=== PATIENT | female | born 1985 | race Two or more races ===

== ENCOUNTER 2016-08-08 14:44 | Emergency (ER) | payer MEDICAID ==
[~2016-08-08] VITALS: Ht 149.9 cm; Wt 77.1 kg
[~2016-08-08 14:44] MED LIST: NKM
[2016-08-08 14:51] VITALS: BP 116/79
[2016-08-08] MEDS ORDERED: Ketorolac 30mg Inj IV ONE (15:45)
[2016-08-08] MEDS ORDERED: Dexamethasone 4mg/ml vial IVP ONE (15:45)
--- NOTE | 2016-08-08 16:01 | Emergency Room Report ---
History of Present Illness General Chief Complaint: Sore Throat Source: Patient Present Illness HPI 30-year-old female presents emergency department complaining of left-sided 7/10 localized throat pain and swelling since last night. Patient reports she is unable to open her mouth states her pain is 10 out of 10 in severity. Patient also states that she had a history of abscess several months ago in the location that required surgical drainage and hospitalization. Patient denies taking any medications prior to arrival patient denies fevers the patient states that last time she didn't develop fevers to several days after. Pt reports difficulty swallowing, and change to voice. Patient denies cough, nausea, vomiting, . Denies CP, Palpitations, LOC, AMS, dizziness, Changes in Vision, Sensation, paresthesias, or a sudden severe headache. Allergies: Coded Allergies: No Known Allergies (Unverified , 08/08/16) Patient History Past Medical History: see triage record Past Surgical History: none Pertinent Family History: none Last Menstrual Period: 3 weeks ago Now: No Immunizations: UTD Reviewed Nursing Documentation: PMH: Agreed, PSxH: Agreed Nursing Documentation-PMH Past Medical History: No Stated History Review of Systems All Other Systems: negative except mentioned in HPI Physical Exam Vital Signs Date Time Temp Pulse Resp B/P Pulse Ox O2 Delivery O2 Flow Rate FiO2 08/08/16 14:39 99.1 91 20 116/79 99 Room Air Sp02 EP Interpretation: reviewed, normal General Appearance: no apparent distress, alert, GCS 15, non-toxic Head: normocephalic, atraumatic Eyes: bilateral eye PERRL, bilateral eye normal inspection ENT: hearing grossly normal, normal pharynx, no angioedema, normal voice, other - PT. has moderate trismus barely 1 finger breath, visiable left sided neck and subparotid swelling in addition to swelling in the pre auricular area. Neck: full range of motion, no meningismus, no bony tend, supple/symm/no masses Respiratory: chest non-tender, lungs clear, normal breath sounds, speaking full sentences Cardiovascular #1: regular rate, rhythm, no edema Musculoskeletal: back normal, gait/station normal, normal range of motion, non- tender, no calf tenderness Neurologic: alert, oriented x3, responsive, motor strength/tone normal, sensory intact, speech normal Psychiatric: judgement/insight normal, memory normal, mood/affect normal, no suicidal/homicidal ideation Skin: normal color, no rash, warm/dry, well hydrated Lymphatic: other - sub parotid LAD bilaterally Medical Decision Making PA Attestation Dr. Palacios is my supervising Physician whom patient management has been discussed with. Diagnostic Impression: Primary Impression: Sialoadenitis of submandibular gland Additional Impression: Sialolithiasis, ductal ER Course Pt. presents to the ED c/o : Unilateral throat swelling and pain since last night, with hx of abscess. Ddx considered but are not limited to: pharyngitis, strep, STIPPLER, ludwigs angina, URI Vital signs: are WNL, pt. is afebrile H&PE are most consistent with: pharyngitis presumed strep. ORDERS: -CBC: leukocytosis of 16.6 -BMP: WNL /unremarkable -CT Soft Tissue Neck with Contrast: 8mm left sialolith in the Warton's duct, and left sialoadenitis ED INTERVENTIONS: -8mg Decadron IV -30mg Toradol IV -3 g Unasyn -5mg [place] PO DISCHARGE: At this time pt. is stable for d/c to home. with close outpatient follow up and oral abx. pt. was given strict instructions to return with worsening or new symptoms. d/w pt that she will be started on conservative management including lozenges and hot compresses with gentle massaging. Will provide printed patient care instructions, and any necessary prescriptions. Care plan and follow up instructions have been discussed with the patient prior to discharge. Labs Test 08/08/16 15:44 08/08/16 16:20 White Blood Count 16.6 K/UL (4.8-10.8) Red Blood Count 4.90 M/UL (4.20-5.40) Hemoglobin 14.9 G/DL (12.0-16.0) Hematocrit 44.8 % (37.0-47.0) Mean Corpuscular Volume 92 FL (80-99) Mean Corpuscular Hemoglobin 30.5 PG (27.0-31.0) Mean Corpuscular Hemoglobin Concent 33.3 G/DL (32.0-36.0) Red Cell Distribution Width 11.7 % (11.6-14.8) Platelet Count 392 K/UL (150-450) Mean Platelet Volume 7.0 FL (6.5-10.1) Neutrophils (%) (Auto) 81.3 % (45.0-75.0) Lymphocytes (%) (Auto) 8.9 % (20.0-45.0) Monocytes (%) (Auto) 8.2 % (1.0-10.0) Eosinophils (%) (Auto) 0.8 % (0.0-3.0) Basophils (%) (Auto) 0.8 % (0.0-2.0) Sodium Level 138 mEQ/L (135-145) Potassium Level 4.2 mEQ/L (3.4-4.9) Chloride Level 98 mEQ/L (98-107) Carbon Dioxide Level 23 mEQ/L (20-30) Anion Gap 17 (5-15) Blood Urea Nitrogen 4 mg/dL (7-23) Creatinine 0.7 mg/dL (0.5-0.9) Estimat Glomerular Filtration Rate > 60 mL/min (>60) Glucose Level 98 mg/dL (74-106) Calcium Level 9.6 mg/dL (8.6-10.2) Urine HCG, Qualitative Negative Last Vital Signs Date Time Temp Pulse Resp B/P Pulse Ox O2 Delivery O2 Flow Rate FiO2 08/08/16 14:51 20 116/79 99 Room Air 08/08/16 14:39 99.1 91 Disposition: HOME, SELF-CARE Condition: Stable Scripts Hydrocodone Bit/Acetaminophen 5-325* (NORCO 5-325*) 1 Each Tablet 1 TAB ORAL Q6H Y for For Pain, #10 TAB 0 Refills Prov: Heena Maldonado P.A. 08/08/16 Ibuprofen* (MOTRIN*) 600 Mg Tablet 600 MG ORAL THREE TIMES A DAY, #30 TAB 0 Refills Prov: Heena Maldonado P.A. 08/08/16 Amoxicillin/Potassium Clav 875-125* (AUGMENTIN 875-125 TABLET*) 1 Each Tablet 1 TAB ORAL TWICE A DAY for 7 Days, #14 TAB Prov: Heena Maldonado P.A. 08/08/16 Patient Instructions: Salivary Stone Additional Instructions: Take medications as directed. Follow up with PCP Within 3 days Return sooner to ED if new symptoms occur, or current symptoms become worse. Do not drink alcohol, drive, or operate heavy machinery while taking [place] as this may cause drowsiness. - Please note that this Emergency Department Report was dictated using [employer] winding supervisor technology software, occasionally this can lead to erroneous entry secondary to interpretation by the dictation equipment. Heena Maldonado Aug 08, 2016 16:01
[2016-08-08 16:06] LABS: BASOPHILS % (AUTO) 0.8 % (0.0-2.0); EOSINOPHILS % (AUTO) 0.8 % (0.0-3.0); LYMPHOCYTES % (AUTO) 8.9 % (20.0-45.0); MEAN CORPUSCULAR HEMOGLOBIN 30.5 PG (27.0-31.0); MEAN CORPUSCULAR HGB CONC 33.3 G/DL (32.0-36.0); MEAN CORPUSCULAR VOLUME 92 FL (80-99); MONOCYTES % (AUTO) 8.2 % (1.0-10.0); NEUTROPHILS % (AUTO) 81.3 % (45.0-75.0); PLATELET COUNT 392 K/UL (150-450); RED CELL DISTRIBUTION WIDTH 11.7 % (11.6-14.8); WHITE BLOOD COUNT 16.6 K/UL (4.8-10.8)
[2016-08-08 16:35] LABS: ANION GAP 17 (5-15); CALCIUM 9.6 mg/dL (8.6-10.2); CARBON DIOXIDE 23 mEQ/L (20-30); CHLORIDE 98 mEQ/L (98-107); CREATININE 0.7 mg/dL (0.5-0.9); GLOMERULAR FILTRATION RATE > 60 mL/min (>60); HEMOLYSIS 3; POTASSIUM 4.2 mEQ/L (3.4-4.9); SODIUM 138 mEQ/L (135-145)
[2016-08-08] MEDS ORDERED: Unasyn 3gm Inj IVPB ONE (17:00)
[2016-08-08] MEDS ORDERED: Unasyn 3gm Inj ONE (17:12)
[2016-08-08 17:39] VITALS: BP 123/74
[2016-08-08] MEDS ORDERED: Ampicillin/Sulbactam Sod 3 GM in NS 110 ML IVPB ONE (17:45)
[2016-08-08] MEDS ORDERED: IBUPROFEN600 MG ORAL (18:53)
[2016-08-08] MEDS ORDERED: NORCO 5-325 TA1 EACH ORAL (18:53)
[2016-08-08] MEDS ORDERED: AUGMENTIN 875-1 EAC1 ORAL (18:53)
[2016-08-08 19:00] VITALS: BP 119/71
[2016-08-08] MEDS ORDERED: Norco 5mg/325mg tab ORAL ONE (19:15)
--- NOTE | 2016-08-09 11:00 | Diagnostic Imaging Report ---
Indication: PAIN Technique: IV administration nonionic contrast. Spiral acquisitions obtained through the neck. Multiplanar reconstructions were generated. Total dose length product 571 mGycm. CTDIvol(s) 8, 24, 19 mGy. Radiation dose was minimized using automated exposure control Comparison: None Findings: There is marked heterogeneous low attenuation of the left submandibular gland. There is a 9 x 4 mm calcification in the floor of mouth, posterior lateral to which is a tubular structure which likely represents a dilated salivary duct. The right submandibular gland and bilateral parotid glands are unremarkable. The nasopharynx, oropharynx, hypopharynx, larynx, upper trachea are unremarkable. The included a lower lungs are unremarkable. The included thyroid is unremarkable. There are prominent but not frankly enlarged anterior triangle nodes on the left. Impression: Positive for 9 x 4 mm obstructing left submandibular duct sialolith. Abnormal appearance of the left submandibular gland presumably related to such; sialadenitis not excludable This agrees with the preliminary interpretation provided overnight by Dr. Gallagher The CT scanner at [facility] is accredited by the [employer] and the scans are performed using protocols designed to limit radiation exposure to as low as reasonably achievable to attain images of sufficient resolution adequate for diagnostic evaluation.
== END 2016-08-08 19:16 | disposition home or self-care (01) ==
LOC: EDBD 14:44 → EMR 16:30
DX: K11.20 Sialoadenitis, unspecified (principal); K11.5 Sialolithiasis
CPT/HCPCS: 36415; 70491; 80048; 81025; 85025; 96374; 96375; 99284; J0295; J1100; J1885; Q9967